=== PATIENT | male | born 1985 ===

== ENCOUNTER 2017-07-12 13:36 | Emergency (ER) | payer OTHER ==
[~2017-07-12] VITALS: Ht 177.8 cm; Wt 77.1 kg
[~2017-07-12 13:36] MED LIST: KETO10TA2 PO; NAPROXEN500 M1 PO
[2017-07-12] MEDS ORDERED: AMBIEN10 MG (13:53)
[2017-07-12] MEDS ORDERED: BELSOMRA5 MG (13:53)
[2017-07-12] MEDS ORDERED: ATIVAN1 M1 (13:53)
[2017-07-12] MEDS ORDERED: TRAZODONE HCL100 MG (13:54)
== END 2017-07-12 17:07 | disposition home or self-care (01) ==
LOC: ER 13:36
DX: S20.212A Contusion of left front wall of thorax, initial encounter (principal); S20.211A Contusion of right front wall of thorax, initial encounter; S13.4XXA Sprain of ligaments of cervical spine, initial encounter; V49.9XXA Car occupant (driver) (passenger) injured in unspecified traffic accident, initial encounter; Y93.89 Activity, other specified; Y92.488 Other paved roadways as the place of occurrence of the external cause; Y99.8 Other external cause status

== ENCOUNTER 2019-02-14 14:24 | Outpatient (CLI) | payer OTHER ==
[~2019-02-14 14:24] MED LIST changes: +AMBIEN10 MG; +ATIVAN1 M1; +BELSOMRA5 MG; +TRAZODONE HCL100 MG
== END 2019-02-14 15:00 | disposition home or self-care (01) ==
LOC: RAD 14:24
DX: M54.2 Cervicalgia (principal); M54.6 Pain in thoracic spine; S69.92XA Unspecified injury of left wrist, hand and finger(s), initial encounter

== ENCOUNTER 2019-04-16 22:08 | Emergency (ER) | payer OTHER ==
[~2019-04-16] VITALS: Ht 175.3 cm; Wt 83.9 kg
== END 2019-04-17 00:12 | disposition home or self-care (01) ==
LOC: ER 22:08
DX: L03.032 Cellulitis of left toe (principal)

== ENCOUNTER 2019-12-25 16:54 | Outpatient (CLI) | payer OTHER | END 2019-12-25 17:00 | disposition home or self-care (01) | LOC: LAB 16:54 | PROVIDERS: ATTEND Surgery | DX: N40.1 Benign prostatic hyperplasia with lower urinary tract symptoms (principal) ==

== ENCOUNTER 2019-12-31 17:29 | Emergency (ER) | payer OTHER ==
[~2019-12-31] VITALS: Ht 177.8 cm; Wt 86.2 kg
== END 2019-12-31 20:02 | disposition home or self-care (01) ==
LOC: ER 17:29
DX: G43.809 Other migraine, not intractable, without status migrainosus (principal); R11.2 Nausea with vomiting, unspecified

== ENCOUNTER 2020-01-15 08:00 | Outpatient (CLI) | payer OTHER | END 2020-01-15 15:00 | disposition home or self-care (01) | LOC: PPH VACUNA 08:00 | DX: Z23 Encounter for immunization (principal) ==

== ENCOUNTER 2020-04-13 15:48 | Outpatient (CLI) | payer OTHER | END 2020-04-13 18:00 | disposition home or self-care (01) | LOC: PPH VACUNA 15:48 | DX: Z23 Encounter for immunization (principal) ==